=== PATIENT | male | born 1990 | race Caucasian/White ===

== ENCOUNTER → 2016-03-27 | Outpatient (REF) | payer OTHER | LOC: M SFHCLERA 15:44 | PROVIDERS: ATTEND Family Medicine | DX: E10.65 Type 1 diabetes mellitus with hyperglycemia (principal); Z53.9 Procedure and treatment not carried out, unspecified reason ==

== ENCOUNTER → 2018-05-04 | Outpatient (CLI) | payer OTHER ==
--- NOTE | 2018-05-04 19:42 | REP ---
RIGHT THIRD FINGER SERIES: 05/04/2018. Clinical history: Trauma with pain to the distal tuft right third finger after slanting in a door 3 days ago. Findings: Four views are provided. There is prominent soft tissue swelling over the dorsal aspect of the distal phalanx consistent with a subungual hematoma or other fluid collection. I do not see radiopaque foreign body or air bubbles that would define radiographic sign of abscess. The IP joints and phalanges unremarkable. Remainder of exam unremarkable. Impression: 1. Soft tissue swelling distal tuft of the distal phalanx, subungual hematoma is suspected. No definite fracture or foreign body. Electronically Signed by Taqueria Romo MD 05/04/2018 10:07 P
== END ==
LOC: M LRY 18:49
PROVIDERS: ATTEND Nurse Practitioner Family
DX: M79.9 Soft tissue disorder, unspecified (principal)

== ENCOUNTER → 2018-05-04 | Outpatient (CLI) | payer OTHER | LOC: M LRY 18:45 | PROVIDERS: ATTEND Nurse Practitioner Family | DX: M79.644 Pain in right finger(s) (principal); Z53.8 Procedure and treatment not carried out for other reasons ==

== ENCOUNTER 2022-08-15 08:19 | Inpatient (IN) | payer MEDICAID, OTHER ==
[~2022-08-15] VITALS: Ht 182.9 cm; Wt 67.6 kg
[2022-08-15] MEDS ORDERED: INSU100I9 SC (08:35)
[2022-08-15] MEDS ORDERED: BASA100I SC (08:35)
[2022-08-15] MEDS ORDERED: SIMV40TA20 PO (08:35)
[2022-08-15] MEDS ORDERED: LISI2.5T9 PO (08:35)
[2022-08-15] MEDS ORDERED: NS 1,000 ML IV ONE ×2 (08:40→12:00)
[2022-08-15] MEDS ORDERED: NS 1,000 ML in IV 1 EA IV ONE (09:05)
[2022-08-15 09:16] LABS: VENOUS BASE EXCESS -12.2 (-2.0-2.0); VENOUS HCO3 13.4 MMOL/L (23.0-27.0); VENOUS O2 SATURATION 71.2 % (60.0-80.0); VENOUS PARTIAL PRESSURE CO2 30.7 mmHg (38.0-50.0); VENOUS PARTIAL PRESSURE O2 39.3 mmHg (30.0-50.0); VENOUS PH 7.259 UNITS (7.330-7.430); VENOUS STANDARD HCO3 14.7 MMOL/L; VENOUS TOTAL CO2 14.4 MMOL/L (24.0-28.0)
[2022-08-15 09:23] LABS: BASO # 0.1 10^3/uL (0.0-0.2); BASO % 0.3 % (0.0-1.0); EOS % 0.1 % (0.0-3.0); HEMATOCRIT 43.8 % (42.0-52.0); HEMOGLOBIN 14.7 g/dl (13.5-17.5); LYMPH # 1.2 10^3/uL (1.5-5.0); LYMPH % 6.6 % (24.0-44.0); MEAN CORPUSCULAR HEMOGLOBIN 30.9 pg (27.0-33.0); MEAN CORPUSCULAR HGB CONC 33.6 g/dl (32.0-36.5); MEAN CORPUSCULAR VOLUME 92.2 fl (80.0-96.0); MONO # 1.1 10^3/uL (0.0-0.8); MONO % 5.7 % (2.0-8.0); NEUTROPHILS % 85.7 % (36.0-66.0); PLATELET COUNT, AUTOMATED 266 10^3/uL (150-450); RED BLOOD COUNT 4.75 10^6/uL (4.30-6.10); WHITE BLOOD COUNT 18.7 10^3/uL (4.0-10.0)
[2022-08-15] MEDS ORDERED: ONDANSETRON 4MG 2ML VIAL IV ONE (09:30)
[2022-08-15 09:45] LABS: ETHYL ALCOHOL (ETHANOL) 0.003 % (0.000-0.010); LIPASE 29 U/L (12-53)
[2022-08-15 09:46] LABS: CPK CREATINE PHOSPHOKINASE 110 U/L (46-171)
[2022-08-15 09:51] LABS: HEMOGLOBIN A1c 11.8 % (4.0-6.0)
[2022-08-15 09:54] LABS: ACETONE/KETONE > 4.50 MMOL/L (0.02-0.27); ALBUMIN 4.6 G/DL (3.2-5.2); ALKALINE PHOSPHATASE 82 U/L (46-116); ALT/SGPT 27 U/L (7.0-40); AST/SGOT 17 U/L (<34); BILIRUBIN,DIRECT 0.3 MG/DL (<0.4); BILIRUBIN,TOTAL 0.9 MG/DL (0.3-1.2); BLOOD UREA NITROGEN 33 MG/DL (9-23); CALCIUM LEVEL 10.9 MG/DL (8.5-10.1); CARBON DIOXIDE LEVEL 14 MMOL/L (20-31); CHLORIDE LEVEL 94 MMOL/L (98-107); CK-MB VALUE MASS 3.4 NG/ML (<3.6); CREATININE FOR GFR 0.95 MG/DL (0.70-1.30); GLOMERULAR FILTRATION RATE > 60.0 (>60); GLUCOSE, FASTING 458 MG/DL (60-100); MAGNESIUM LEVEL 2.2 MG/DL (1.8-2.4); MB/CK RELATIVE INDEX 3.09 (< OR =4); PHOSPHORUS LEVEL 5.4 MG/DL (2.5-4.9); POTASSIUM SERUM 5.1 MMOL/L (3.5-5.1); SODIUM LEVEL 131 MMOL/L (136-145); TOTAL PROTEIN 7.1 G/DL (5.7-8.2)
[2022-08-15] MEDS ORDERED: INSULIN REGULAR IN 0.9 % NACL 100 UNIT in IV 1 EA IV SCH ×4 (10:05→12:00)
[2022-08-15] MEDS ORDERED: INSULIN IV RATE CHANGE DOCUMENTATION ML/HR XX SCH (10:05)
[2022-08-15 10:07] LABS: OSMOLALITY SERUM 317 MOSM/KG (275-295)
[2022-08-15] MEDS ORDERED: cefTRIAXone SOD 2 GM in D5W MINI-BAG PLUS 50 ML IV ONE (10:25)
[2022-08-15] MEDS ORDERED: MED REC IN PROGRESS XX SCH (10:25)
[2022-08-15] MEDS ORDERED: PANTOPRAZOLE 40MG VIAL IV ONE (10:30)
[2022-08-15] MEDS ORDERED: METOCLOPRAMIDE INJ 10MG/2ML VIAL IV PRN (10:50)
[2022-08-15 11:08] LABS: AMPHETAMINES LEVEL URINE NEGATIVE (NEGATIVE); BARBITURATES URINE NEGATIVE (NEGATIVE); BENZODIAZEPINES URINE NEGATIVE (NEGATIVE); COCAINE METABOLITE URINE NEGATIVE (NEGATIVE); METHADONE URINE NEGATIVE (NEGATIVE); OPIATES URINE NEGATIVE (NEGATIVE); PHENCYCLIDINE URINE NEGATIVE (NEGATIVE)
[2022-08-15 11:11] LABS: CANNABINOIDS URINE POSITIVE (NEGATIVE)
[2022-08-15] MEDS ORDERED: ASPI81TA26 PO (11:20)
[2022-08-15] MEDS ORDERED: HOME MED LIST COMPLETE! XX SCH (11:25)
[2022-08-15] MEDS ORDERED: D5W/0.45% SODIUM CHLORIDE 1,000 ML IV ONE (11:30)
[2022-08-15 15:35] LABS: BLOOD UREA NITROGEN 27 MG/DL (9-23); CALCIUM LEVEL 7.7 MG/DL (8.5-10.1); CARBON DIOXIDE LEVEL 17 MMOL/L (20-31); CHLORIDE LEVEL 108 MMOL/L (98-107); CREATININE FOR GFR 0.81 MG/DL (0.70-1.30); GLOMERULAR FILTRATION RATE > 60.0 (>60); GLUCOSE, FASTING 249 MG/DL (60-100); POTASSIUM SERUM 4.2 MMOL/L (3.5-5.1); SODIUM LEVEL 138 MMOL/L (136-145)
[2022-08-15 16:00] VITALS: BP 113/56; TEMP 99.4; O2SAT 100
[2022-08-15] MEDS: INSULIN IV RATE CHANGE DOCUMENTATION ML/HR XX SCH ×2 (16:12→18:09)
[2022-08-15 17:00] VITALS: BP 99/57; O2SAT 98
[2022-08-15 18:00] VITALS: BP 108/58; O2SAT 98
[2022-08-15 18:42] LABS: BLOOD UREA NITROGEN 23 MG/DL (9-23); CALCIUM LEVEL 7.7 MG/DL (8.5-10.1); CARBON DIOXIDE LEVEL 22 MMOL/L (20-31); CHLORIDE LEVEL 110 MMOL/L (98-107); CREATININE FOR GFR 0.75 MG/DL (0.70-1.30); GLOMERULAR FILTRATION RATE > 60.0 (>60); GLUCOSE, FASTING 180 MG/DL (60-100); POTASSIUM SERUM 3.8 MMOL/L (3.5-5.1); SODIUM LEVEL 139 MMOL/L (136-145)
[2022-08-15] MEDS ORDERED: LEVEMIR (INSULIN DETEMIR) 1 UNITS/0.01ML SC SCH (19:00)
[2022-08-15] MEDS ORDERED: INSULIN LISPRO (NovoLOG) PER UNIT SC SCH (21:00)
[2022-08-16] MEDS ORDERED: INSULIN LISPRO (NovoLOG) PER UNIT SC SCH (07:30)
[2022-08-16] MEDS ORDERED: PANTOPRAZOLE 40MG VIAL IV SCH (11:00)
[2022-08-16] MEDS ORDERED: cefTRIAXone SOD 1 GM in D5W MINI-BAG PLUS 50 ML IV SCH (11:00)
== END 2022-08-15 19:20 | disposition left against medical advice (07) | DRG 420 ==
LOC: M ED 08:19 → M ED INP 14:31 → ENRESERV 14:55 → M ICU 15:55
PROVIDERS: ADMIT Internal Medicine Pulmonary Disease; ATTEND Internal Medicine Pulmonary Disease
DX: E10.10 Type 1 diabetes mellitus with ketoacidosis without coma (principal); E86.0 Dehydration; J45.909 Unspecified asthma, uncomplicated; F17.200 Nicotine dependence, unspecified, uncomplicated; Z79.4 Long term (current) use of insulin; Z79.899 Other long term (current) drug therapy

== ENCOUNTER 2024-01-03 16:31 | Emergency (ER) | payer MEDICAID, OTHER ==
[~2024-01-03] VITALS: Ht 182.9 cm; Wt 70.5 kg
[~2024-01-03 16:31] MED LIST: ASPI81TA26 PO; BASA100I SC; INSU100I24 SC; LISI2.5T9 PO; SIMV40TA20 PO
[2024-01-03] MEDS ORDERED: SILD20TA11 (16:48)
[2024-01-03 17:09] LABS: VENOUS BASE EXCESS 3.5 (-2.0-2.0); VENOUS HCO3 27.1 MMOL/L (23.0-27.0); VENOUS O2 SATURATION 80.8 % (60.0-80.0); VENOUS PARTIAL PRESSURE O2 40.4 mmHg (30.0-50.0); VENOUS PH 7.471 UNITS (7.330-7.430); VENOUS STANDARD HCO3 27.1 MMOL/L; VENOUS TOTAL CO2 28.3 MMOL/L (24.0-28.0)
[2024-01-03 17:14] LABS: BASO % 0.2 % (0.0-1.0); EOS % 0.2 % (0.0-3.0); HEMATOCRIT 41.7 % (42.0-52.0); HEMOGLOBIN 14.4 g/dl (13.5-17.5); LYMPH # 1.6 10^3/uL (1.5-5.0); LYMPH % 9.6 % (24.0-44.0); MEAN CORPUSCULAR HEMOGLOBIN 30.7 pg (27.0-33.0); MEAN CORPUSCULAR HGB CONC 34.5 g/dl (32.0-36.5); MEAN CORPUSCULAR VOLUME 88.9 fl (80.0-96.0); MONO # 1.2 10^3/uL (0.0-0.8); MONO % 7.3 % (2.0-8.0); NEUTROPHILS # 13.2 10^3/uL (1.5-8.5); NEUTROPHILS % 82.4 % (36.0-66.0); PLATELET COUNT, AUTOMATED 246 10^3/uL (150-450); RED BLOOD COUNT 4.69 10^6/uL (4.30-6.10); WHITE BLOOD COUNT 16.1 10^3/uL (4.0-10.0)
[2024-01-03 17:38] LABS: OSMOLALITY SERUM 299 MOSM/KG (275-295)
[2024-01-03 17:41] LABS: LIPASE 26 U/L (12-53)
[2024-01-03 17:42] LABS: ACETONE/KETONE 1.35 MMOL/L (0.02-0.27)
[2024-01-03 17:43] LABS: ALBUMIN 3.6 G/DL (3.2-5.2); ALKALINE PHOSPHATASE 75 U/L (40-129); ALT/SGPT 21 U/L (7.0-40); AST/SGOT 9 U/L (<34); BILIRUBIN,DIRECT 0.3 MG/DL (<0.4); BILIRUBIN,TOTAL 0.9 MG/DL (0.3-1.2); BLOOD UREA NITROGEN 16 MG/DL (9-23); CALCIUM LEVEL 9.9 MG/DL (8.5-10.1); CARBON DIOXIDE LEVEL 28 MMOL/L (20-31); CHLORIDE LEVEL 102 MMOL/L (98-107); CREATININE FOR GFR 0.64 MG/DL (0.70-1.30); GLOMERULAR FILTRATION RATE > 60.0 (>60); GLUCOSE, FASTING 318 MG/DL (60-100); POTASSIUM SERUM 4.4 MMOL/L (3.5-5.1); SODIUM LEVEL 136 MMOL/L (136-145); TOTAL PROTEIN 6.7 G/DL (5.7-8.2)
[2024-01-03] MEDS: LIDOCAINE VISCOUS 2% SOLN 15ML UDC PO ONE (19:06)
[2024-01-03] MEDS: ONDANSETRON 4MG 2ML VIAL IV ONE (19:07)
[2024-01-03] MEDS ORDERED: ISOVUE-370 76% 100ML VIAL As Ordered ONE (19:24)
[2024-01-03] MEDS ORDERED: ONDA-282 PO (21:25)
[2024-01-03 21:37] VITALS: BP 132/83; TEMP 99.9; O2SAT 97
== END 2024-01-03 21:39 | disposition home or self-care (01) ==
LOC: M ED 16:31
DX: E10.65 Type 1 diabetes mellitus with hyperglycemia (principal); D18.03 Hemangioma of intra-abdominal structures; D72.829 Elevated white blood cell count, unspecified; R94.31 Abnormal electrocardiogram [ECG] [EKG]; F12.10 Cannabis abuse, uncomplicated; Z88.0 Allergy status to penicillin; Z79.1 Long term (current) use of non-steroidal anti-inflammatories (NSAID); Z79.4 Long term (current) use of insulin; Z79.899 Other long term (current) drug therapy
CPT/HCPCS: 74177; 80048; 80076; 81001; 82010; 82803; 83036; 83605; 83690; 83930; 85025; 93005; 96374; 99284; J2405; Q9967

== ENCOUNTER 2024-07-09 21:27 | Inpatient (IN) | payer OTHER ==
[~2024-07-09] VITALS: Ht 182.9 cm; Wt 67.7 kg
[~2024-07-09 21:27] MED LIST changes: +ONDA-282 PO; +SILD20TA11
[2024-07-09] MEDS: NS (Normal Saline) 0.9% 1,000 ML IV ONE (22:10)
[2024-07-09 22:32] LABS: VENOUS BASE EXCESS -9.9 (-2.0-2.0); VENOUS HCO3 13.6 MMOL/L (23.0-27.0); VENOUS O2 SATURATION 91.6 % (60.0-80.0); VENOUS PARTIAL PRESSURE CO2 25.3 mmHg (38.0-50.0); VENOUS PH 7.348 UNITS (7.330-7.430); VENOUS STANDARD HCO3 16.7 MMOL/L; VENOUS TOTAL CO2 14.4 MMOL/L (24.0-28.0)
[2024-07-09 22:35] LABS: BASO # 0.1 10^3/uL (0.0-0.2); BASO % 0.3 % (0.0-1.0); EOS % 0.1 % (0.0-3.0); HEMATOCRIT 45.4 % (42.0-52.0); HEMOGLOBIN 15.7 g/dl (13.5-17.5); LYMPH # 1.7 10^3/uL (1.5-5.0); LYMPH % 10.3 % (24.0-44.0); MEAN CORPUSCULAR HEMOGLOBIN 30.3 pg (27.0-33.0); MEAN CORPUSCULAR HGB CONC 34.6 g/dl (32.0-36.5); MEAN CORPUSCULAR VOLUME 87.5 fl (80.0-96.0); MONO # 0.8 10^3/uL (0.0-0.8); MONO % 5.1 % (2.0-8.0); NEUTROPHILS # 13.6 10^3/uL (1.5-8.5); NEUTROPHILS % 83.2 % (36.0-66.0); PLATELET COUNT, AUTOMATED 248 10^3/uL (150-450); RED BLOOD COUNT 5.19 10^6/uL (4.30-6.10); WHITE BLOOD COUNT 16.3 10^3/uL (4.0-10.0)
[2024-07-09] MEDS: HumuLIN R (REGULAR) INSULIN (NovoLIN R) **100U/ML** PER UNIT IV ONE (22:45)
[2024-07-09 22:54] LABS: HEMOGLOBIN A1c 11.8 % (4.0-6.0)
[2024-07-09] MEDS: ONDANSETRON 4MG 2ML VIAL IV ONE (22:57)
[2024-07-09] MEDS: MORPHINE 4 MG/ML 1ML VIAL IV PRN (22:59)
[2024-07-09 23:01] LABS: LIPASE 23 U/L (12-53)
[2024-07-09 23:05] LABS: ACETONE/KETONE > 4.50 MMOL/L (0.02-0.27); ALBUMIN 4.3 G/DL (3.2-5.2); ALKALINE PHOSPHATASE 74 U/L (40-129); ALT/SGPT 21 U/L (7.0-40); AST/SGOT 17 U/L (<34); BILIRUBIN,DIRECT 0.3 MG/DL (<0.4); BILIRUBIN,TOTAL 0.8 MG/DL (0.3-1.2); BLOOD UREA NITROGEN 31 MG/DL (9-23); CALCIUM LEVEL 9.8 MG/DL (8.5-10.1); CARBON DIOXIDE LEVEL 13 MMOL/L (20-31); CHLORIDE LEVEL 93 MMOL/L (98-107); CREATININE FOR GFR 0.96 MG/DL (0.70-1.30); GLOMERULAR FILTRATION RATE > 90.0 (>60); GLUCOSE, FASTING 503 MG/DL (60-100); SODIUM LEVEL 133 MMOL/L (136-145); TOTAL PROTEIN 6.8 G/DL (5.7-8.2)
[2024-07-09 23:06] LABS: OSMOLALITY SERUM 319 MOSM/KG (275-295)
[2024-07-09] MEDS ORDERED: INSULIN IV RATE CHANGE DOCUMENTATION ML/HR XX SCH (23:10)
[2024-07-09] MEDS ORDERED: ISOVUE-370 76% 100ML VIAL As Ordered ONE (23:12)
[2024-07-09] MEDS: NS (Normal Saline) 0.9% 1,000 ML IV SCH (23:15)
[2024-07-09] MEDS: INSULIN REGULAR IN 0.9 % NACL 100 UNIT in IV 1 EA IV SCH (23:35)
[2024-07-10] VITALS (7 sets, daily range): BP systolic 103–139; BP diastolic 57–72; TEMP 98.8–99.3; O2SAT 95–100
[2024-07-10] MEDS ORDERED: HOME MED LIST COMPLETE! XX SCH
[2024-07-10 00:34] LABS: KETONE, URINE AUTO RFX 2+ mg/dL (NEGATIVE); LEUKOCYTE ESTERASE UR AUTO RFX NEGATIVE (NEGATIVE); NITRITE, URINE AUTO RFX NEGATIVE (NEGATIVE); RBC, URINE AUTO RFX 1 /HPF (0-3); SQUAM EPITHELIAL CELL UR AURFX 0 /HPF (0-6); WBC, URINE AUTO RFX 0 /HPF (0-3)
[2024-07-10] MEDS ORDERED: MOM 30ML SUSPENSION UDC PO PRN (01:30)
[2024-07-10] MEDS: NS (Normal Saline) 0.9% 1,000 ML IV SCH (01:30)
[2024-07-10] MEDS ORDERED: MAALOX 30 ML SUSP *UDC PO PRN (01:30)
[2024-07-10] MEDS: INSULIN REGULAR IN 0.9 % NACL 100 UNIT in IV 1 EA IV SCH (02:42)
[2024-07-10 02:50] LABS: VENOUS BASE EXCESS -5.2 (-2.0-2.0); VENOUS HCO3 19.8 MMOL/L (23.0-27.0); VENOUS O2 SATURATION 95.9 % (60.0-80.0); VENOUS PARTIAL PRESSURE CO2 37.1 mmHg (38.0-50.0); VENOUS PARTIAL PRESSURE O2 83.1 mmHg (30.0-50.0); VENOUS PH 7.345 UNITS (7.330-7.430); VENOUS STANDARD HCO3 20.2 MMOL/L; VENOUS TOTAL CO2 20.9 MMOL/L (24.0-28.0)
[2024-07-10 02:55] LABS: HEMATOCRIT 42.8 % (42.0-52.0); HEMOGLOBIN 14.8 g/dl (13.5-17.5); MEAN CORPUSCULAR HEMOGLOBIN 30.1 pg (27.0-33.0); MEAN CORPUSCULAR HGB CONC 34.6 g/dl (32.0-36.5); MEAN CORPUSCULAR VOLUME 87.2 fl (80.0-96.0); PLATELET COUNT, AUTOMATED 236 10^3/uL (150-450); RED BLOOD COUNT 4.91 10^6/uL (4.30-6.10); WHITE BLOOD COUNT 23.4 10^3/uL (4.0-10.0)
[2024-07-10] MEDS: LISINOPRIL *2.5 MG* TAB PO SCH (03:15)
[2024-07-10] MEDS: SIMVASTATIN 40 MG TAB PO SCH (03:15)
[2024-07-10 03:18] LABS: BLOOD UREA NITROGEN 31 MG/DL (9-23); CALCIUM LEVEL 8.9 MG/DL (8.5-10.1); CARBON DIOXIDE LEVEL 21 MMOL/L (20-31); CHLORIDE LEVEL 103 MMOL/L (98-107); GLOMERULAR FILTRATION RATE > 90.0 (>60); GLUCOSE, FASTING 285 MG/DL (60-100); PHOSPHORUS LEVEL 3.2 MG/DL (2.5-4.9); POTASSIUM SERUM 4.3 MMOL/L (3.5-5.1); SODIUM LEVEL 138 MMOL/L (136-145)
[2024-07-10 03:38] LABS: OSMOLALITY SERUM 311 MOSM/KG (275-295)
[2024-07-10 04:42] LABS: MAGNESIUM LEVEL 2.1 MG/DL (1.8-2.4)
[2024-07-10] MEDS: INSULIN IV RATE CHANGE DOCUMENTATION ML/HR XX SCH (05:03)
[2024-07-10] MEDS: D5W/0.45% SODIUM CHLORIDE 1,000 ML IV SCH (06:23)
[2024-07-10 07:28] LABS: BLOOD UREA NITROGEN 29 MG/DL (9-23); CALCIUM LEVEL 8.7 MG/DL (8.5-10.1); CARBON DIOXIDE LEVEL 25 MMOL/L (20-31); CHLORIDE LEVEL 104 MMOL/L (98-107); CREATININE FOR GFR 0.83 MG/DL (0.70-1.30); GLOMERULAR FILTRATION RATE > 90.0 (>60); GLUCOSE, FASTING 147 MG/DL (60-100); MAGNESIUM LEVEL 2.1 MG/DL (1.8-2.4); POTASSIUM SERUM 4.3 MMOL/L (3.5-5.1); SODIUM LEVEL 139 MMOL/L (136-145)
[2024-07-10] MEDS: DOCUSATE SODIUM 100MG CAPSULE PO SCH (08:42)
[2024-07-10] MEDS: ASPIRIN 81MG ENTERIC TABLET PO SCH (08:42)
[2024-07-10] MEDS: LanTUS (INSULIN GLARGINE INJ) 1 UNITS/0.01 ML SC SCH (08:42)
[2024-07-10] MEDS: ACETAMINOPHEN 325 MG TAB PO PRN (08:50)
[2024-07-10] MEDS: HEPARIN SOD 5000UNITS/ML 1ML VIAL/SYRINGE SC SCH (08:51)
[2024-07-10] MEDS ORDERED: GLUCAGON INJ 1MG VIAL SC PRN (11:05)
[2024-07-10] MEDS ORDERED: GLUCOSE 4 GM CHEW PO PRN (11:05)
[2024-07-10] MEDS ORDERED: DEXTROSE 50% 50ML SYRINGE IV PRN (11:05)
[2024-07-10] MEDS ORDERED: INSULIN LISPRO (NovoLOG) PER UNIT SC SCH ×3 (12:00→21:00)
[2024-07-10 13:14] LABS: BLOOD UREA NITROGEN 29 MG/DL (9-23); CALCIUM LEVEL 8.6 MG/DL (8.5-10.1); CARBON DIOXIDE LEVEL 24 MMOL/L (20-31); CHLORIDE LEVEL 103 MMOL/L (98-107); GLOMERULAR FILTRATION RATE > 90.0 (>60); GLUCOSE, FASTING 190 MG/DL (60-100); POTASSIUM SERUM 4.1 MMOL/L (3.5-5.1); SODIUM LEVEL 138 MMOL/L (136-145)
[2024-07-10] MEDS: INSULIN LISPRO (NovoLOG) PER UNIT SC SCH (13:56)
[2024-07-10 15:45] LABS: HEMATOCRIT 40.1 % (42.0-52.0); MEAN CORPUSCULAR HEMOGLOBIN 30.2 pg (27.0-33.0); MEAN CORPUSCULAR HGB CONC 34.9 g/dl (32.0-36.5); MEAN CORPUSCULAR VOLUME 86.6 fl (80.0-96.0); PLATELET COUNT, AUTOMATED 222 10^3/uL (150-450); RED BLOOD COUNT 4.63 10^6/uL (4.30-6.10); WHITE BLOOD COUNT 18.9 10^3/uL (4.0-10.0)
[2024-07-10 16:22] LABS: BLOOD UREA NITROGEN 27 MG/DL (9-23); CALCIUM LEVEL 8.9 MG/DL (8.5-10.1); CARBON DIOXIDE LEVEL 28 MMOL/L (20-31); CHLORIDE LEVEL 101 MMOL/L (98-107); CREATININE FOR GFR 0.82 MG/DL (0.70-1.30); GLOMERULAR FILTRATION RATE > 90.0 (>60); GLUCOSE, FASTING 224 MG/DL (60-100); SODIUM LEVEL 136 MMOL/L (136-145)
== END 2024-07-10 17:27 | disposition home or self-care (01) | DRG 420 ==
LOC: M ED 21:27 → M ED INP 07-10 01:27 → M ICU 07-10 03:00
PROVIDERS: ADMIT Student in an Organized Health Care Education/Training Program; ATTEND Student in an Organized Health Care Education/Training Program
DX: E10.10 Type 1 diabetes mellitus with ketoacidosis without coma (principal); E10.65 Type 1 diabetes mellitus with hyperglycemia; I10 Essential (primary) hypertension; E78.5 Hyperlipidemia, unspecified; J45.909 Unspecified asthma, uncomplicated; Z79.82 Long term (current) use of aspirin; Z79.4 Long term (current) use of insulin; Z79.899 Other long term (current) drug therapy; Z88.0 Allergy status to penicillin